=== PATIENT | female | born 1950 | race Caucasian/White ===

== ENCOUNTER 2024-02-05 23:13 | Emergency (ER) | payer MEDICARE ==
[~2024-02-05] VITALS: Ht 162.6 cm; Wt 74.4 kg
[2024-02-05 23:16] VITALS: BP 93/53; PULSE 72; RESP 16; TEMP 98.2; O2SAT 97
[2024-02-05 23:20] VITALS: O2SAT 97
[2024-02-05] MEDS: cefTRIAXone 1,000 MG in DEXT 5% MINI-BAG PLUS 50 ML IV ONE (23:20)
[2024-02-05 23:57] LABS: BASOPHILS % (AUTO) 0.4 % (0.0-2.0); EOSINOPHILS # (AUTO) 0.1 K/uL (0-0.4); EOSINOPHILS % (AUTO) 1.9 % (0.0-4.0); HEMATOCRIT 37.5 % (36-48); HEMOGLOBIN 12.7 g/dL (12.0-16.0); LYMPHOCYTES # (AUTO) 3.9 K/uL (2.5-16.5); LYMPHOCYTES % (AUTO) 50.3 % (20.5-51.1); MEAN CORPUSCULAR HEMOGLOBIN 31 pg (27-31); MEAN CORPUSCULAR HGB CONC 34 g/dL (33-37); MEAN CORPUSCULAR VOLUME 90.1 fL (80-94); MONOCYTES # (AUTO) 0.4 K/uL (0.8-1.0); MONOCYTES % (AUTO) 5.6 % (1.7-9.3); NEUTROPHILS # (AUTO) 3.3 K/uL (1.8-7.7); NEUTROPHILS % (AUTO) 41.8 % (42.2-75.2); PLATELET COUNT (AUTO) 204 K/uL (140-450); RED BLOOD CELL COUNT(AUTO) 4.16 MIL/uL (4.20-5.40); RED CELL DISTRIBUTION WIDTH 14.4 % (11.6-13.7); WHITE BLOOD COUNT (AUTO) 7.8 K/uL (4.8-10.8)
[2024-02-06 00:11] LABS: ANION GAP 13.9 (8-16); CALCIUM 9.6 mg/dL (8.5-10.1); CARBON DIOXIDE 23.8 mmol/L (21-32); CHLORIDE 106 mmol/L (98-107); GLUCOSE 96 mg/dL (74-106); POTASSIUM 3.7 mmol/L (3.5-5.1); SODIUM SERUM 140 mmol/L (136-145); UREA NITROGEN, BLOOD 17 mg/dL (7-18)
[2024-02-06 00:24] LABS: FLU A ANTIGEN negative (NEGATIVE); FLU B ANTIGEN negative (NEGATIVE)
[2024-02-06 00:27] LABS: LACTIC ACID 3.1 mmol/L (0.4-2.0)
[2024-02-06 01:03] VITALS: O2SAT 97
[2024-02-06 01:07] LABS: APPEARANCE,URINE HAZY (CLEAR); BILIRUBIN,URINE NEGATIVE (NEGATIVE); BLOOD, URINE NEGATIVE (NEGATIVE); COLOR,URINE YELLOW (YELLOW); LEUKOCYTE ESTERASE ,URINE 2+ (NEGATIVE); NITRITE, URINE NEGATIVE (NEGATIVE); PROTEIN,URINE NEGATIVE (NEGATIVE); UGLUCOSE NEGATIVE (NEGATIVE); UROBILINOGEN,URINE 0.2 EU/dL (0.2 - 1)
[2024-02-06 01:23] LABS: BACTERIA,URINE 1+ /HPF (None Seen); RBC,URINE 0-5 /HPF (0-5); SQUAMOUS EPITHELIAL CELL,UR 20-50 /LPF (0-3 (FEW)); WBC,URINE >25 (MANY) /HPF (0-5)
[2024-02-06] MEDS ORDERED: cefTRIAXone 1,000 MG VIAL ONE (01:23)
[2024-02-06] MEDS: NACL 0.9% 1,000 ML IV ONE (02:18)
[2024-02-06] MEDS: NACL 0.9% 1,000 ML IV SCH (02:25)
[2024-02-06 03:33] VITALS: O2SAT 97
[2024-02-06 05:28] VITALS: O2SAT 97
[2024-02-06 08:24] VITALS: BP 140/70; PULSE 78; RESP 18; TEMP 98.2; O2SAT 98
== END 2024-02-06 08:24 | disposition short-term general hospital (02) ==
LOC: MED 23:13
DX: N39.0 Urinary tract infection, site not specified (principal); R40.4 Transient alteration of awareness; Z20.822 Contact with and (suspected) exposure to COVID-19; I10 Essential (primary) hypertension; Z95.811 Presence of heart assist device
CPT/HCPCS: 36415; 70450; 71045; 80048; 81001; 82947; 82948; 83605; 83880; 84484; 85025; 87040; 87086; 87186; 87426; 87804; 93005; 96361; 96365; 99285; J0696; J7030; Q0092